=== PATIENT | female | born 2005 | race Caucasian/White ===

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

== ENCOUNTER 2025-01-08 19:41 | Emergency (ER) | payer OTHER ==
[~2025-01-08] VITALS: Ht 172.7 cm; Wt 131.5 kg
[~2025-01-08 19:41] MED LIST changes: +PREDNISONE20 M1 PO
[2025-01-08] MEDS ORDERED: BENADRYL ALLERG25 M4 PO (19:55)
[2025-01-08 20:46] LABS: BASO % 0.3 % (0.0-1.0); EOS # 0.2 10*3/uL (0.0-0.4); EOS % 2.4 % (1.0-4.0); HEMATOCRIT 41.4 % (37.0-47.0); MEAN CORPUSCULAR HGB 28.1 pg (27.0-31.0); MEAN CORPUSCULAR HGB CONC 33.1 g/dl (33.0-37.0); MEAN PLATELET VOLUME 9.7 fl (9.6-12.3); MONO # 0.5 10*3/uL (0.1-1.0); MONO % 6.8 % (3.0-9.0); NEUT # 4.5 10*3/uL (2.3-7.9); NEUT % 57.3 % (47.0-73.0); PLATELET COUNT AUTOMATED 274 10*3/uL (130-400); RED BLOOD COUNT 4.87 10*6/uL (4.10-5.10); RED CELL DISTRI WIDTH 13.4 % (0-14.5); WHITE BLOOD COUNT 7.8 10*3/uL (4.8-10.8)
[2025-01-08 21:05] LABS: BUN 10 mg/dl (9-23); CHLORIDE 103 mmol/L (98-107); POTASSIUM 3.7 mmol/L (3.4-5.1)
[2025-01-08 21:09] LABS: BILIRUBIN Negative (Negative); BLOOD Negative (Negative); CLARITY Clear (Clear); COLOR Yellow (Yellow); GLUCOSE Negative (Negative); KETONE Negative (Negative); LEUKO ESTERASE Negative (Negative); NITRITE Negative (Negative); PH 5.5 (4.5-8.0); SPECIFIC GRAVITY >= 1.030 (1.001-1.030)
[2025-01-08 21:15] LABS: BACTERIA 2+
[2025-01-08] MEDS ORDERED: Ciprofloxacin Hydrochloride 500 MG TAB PO ONE (23:35)
[2025-01-08] MEDS ORDERED: CIPRO500 MG PO (23:37)
== END 2025-01-08 23:51 | disposition home or self-care (01) ==
LOC: ED 19:41
PROVIDERS: Internal Medicine
DX: N39.0 Urinary tract infection, site not specified (principal); R11.2 Nausea with vomiting, unspecified

== ENCOUNTER 2025-02-15 09:55 | Emergency (ER) | payer OTHER ==
[~2025-02-15] VITALS: Ht 172.7 cm; Wt 136.1 kg
[~2025-02-15 09:55] MED LIST changes: +BENADRYL ALLERG25 M4 PO; +CIPRO500 MG PO
[2025-02-15 10:31] LABS: BILIRUBIN Negative (Negative); BLOOD Negative (Negative); CLARITY Clear (Clear); COLOR Yellow (Yellow); GLUCOSE Negative (Negative); KETONE Negative (Negative); LEUKO ESTERASE Negative (Negative); NITRITE Negative (Negative); UROBILINOGEN 0.2 E.U./dl (0.0-1.0)
[2025-02-15 10:46] LABS: BACTERIA 2+; RBC 0-2 rbc/hpf (0-2)
[2025-02-15] MEDS ORDERED: Sulfamethoxazole/Trimethopri 1 TAB TAB PO ONE (10:50)
[2025-02-15] MEDS ORDERED: SEPTDS PO (10:51)
[2025-02-15] MEDS ORDERED: OXYBUTYNIN5 MG PO (10:51)
== END 2025-02-15 10:58 | disposition home or self-care (01) ==
LOC: ED 09:55
PROVIDERS: Emergency Medicine
DX: N39.0 Urinary tract infection, site not specified (principal); Z79.899 Other long term (current) drug therapy

== ENCOUNTER 2025-04-20 01:28 | Emergency (ER) | payer SELFPAY ==
[~2025-04-20 01:28] MED LIST changes: +OXYBUTYNIN5 MG PO; +SEPTDS PO
[2025-04-20 02:39] LABS: BILIRUBIN Negative (Negative); BLOOD Negative (Negative); CLARITY Clear (Clear); COLOR Yellow (Yellow); GLUCOSE Negative (Negative); KETONE Trace (Negative); LEUKO ESTERASE Negative (Negative); NITRITE Negative (Negative); PH 5.5 (4.5-8.0); SPECIFIC GRAVITY 1.025 (1.001-1.030)
[2025-04-20 02:45] LABS: BACTERIA TRACE; WBC 0-2 wbc/hpf (0-5)
[2025-04-20] MEDS ORDERED: FLUCONAZOLE100 MG PO (03:18)
== END 2025-04-20 03:37 | disposition home or self-care (01) ==
LOC: ED 01:28
PROVIDERS: Emergency Medicine
DX: B37.31 Acute candidiasis of vulva and vagina (principal); Z79.899 Other long term (current) drug therapy

== ENCOUNTER 2025-05-29 12:19 | Emergency (ER) | payer SELFPAY ==
[~2025-05-29] VITALS: Ht 172.7 cm; Wt 136.1 kg
[~2025-05-29 12:19] MED LIST changes: +FLUCONAZOLE100 MG PO
[2025-05-29] MEDS ORDERED: SODIUM CHLORIDE 0.9% 500 ML IV ONE (12:55)
[2025-05-29] MEDS ORDERED: Dicyclomine Hydrochloride 20 MG/10 ML OSYR PO STA (12:57)
[2025-05-29] MEDS ORDERED: MG-AL HYDROXIDE/SIMETICONE 30 ML UDC PO STA (12:57)
[2025-05-29 13:14] LABS: BASO # 0.0 10*3/uL (0.0-0.1); BASO % 0.4 % (0.0-1.0); EOS # 0.1 10*3/uL (0.0-0.4); EOS % 1.5 % (1.0-4.0); MEAN CELL VOLUME 83.3 fl (81.0-99.0); MEAN CORPUSCULAR HGB 28.1 pg (27.0-31.0); MEAN PLATELET VOLUME 9.7 fl (9.6-12.3); MONO # 0.4 10*3/uL (0.1-1.0); MONO % 5.2 % (3.0-9.0); NEUT # 4.4 10*3/uL (2.3-7.9); NEUT % 64.2 % (47.0-73.0); NUCLEATED RED BLOOD CELL 0.0 % (0.0-0.0); NUCLEATED RED BLOOD CELL 0.0 10*3/uL (0.0-0.0); PLATELET COUNT AUTOMATED 275 10*3/uL (130-400); RED CELL DISTRI WIDTH 12.8 % (0-14.5)
[2025-05-29 13:31] LABS: BILIRUBIN Negative (Negative); BLOOD Negative (Negative); CLARITY Clear (Clear); COLOR Yellow (Yellow); KETONE Trace (Negative); LEUKO ESTERASE Trace (Negative); NITRITE Negative (Negative); PH 5.5 (4.5-8.0); SPECIFIC GRAVITY 1.025 (1.001-1.030); UROBILINOGEN 1.0 E.U./dl (0.0-1.0)
[2025-05-29 13:37] LABS: BUN 9 mg/dl (9-23)
[2025-05-29 13:42] LABS: BACTERIA 2+
[2025-05-29] MEDS ORDERED: PRILOSEC20 M1 PO (14:04)
== END 2025-05-29 14:14 | disposition home or self-care (01) ==
LOC: ED 12:19
PROVIDERS: Nurse Practitioner Family
DX: K21.9 Gastro-esophageal reflux disease without esophagitis (principal); Z79.899 Other long term (current) drug therapy